=== PATIENT | male | born 1955 | race African-American/Black ===

== ENCOUNTER → 2017-10-06 13:58 | Outpatient (CLI) | payer OTHER | END | disposition short-term general hospital (02) | LOC: AMB 13:58 | DX: R11.2 Nausea with vomiting, unspecified (principal); F10.129 Alcohol abuse with intoxication, unspecified | CPT/HCPCS: A0425; A0429 ==

== ENCOUNTER 2017-10-06 14:04 | Emergency (ER) | payer OTHER ==
[~2017-10-06] VITALS: Ht 157.5 cm; Wt 68.0 kg
[2017-10-06 14:00] VITALS: TEMP 98.1
[2017-10-06 15:29] LABS: PLATELET COUNT 92 K/uL (142-355)
[2017-10-06 15:33] LABS: POTASSIUM 3.9 mmol/L (3.6-5.2)
[2017-10-06 18:06] VITALS: BP 140/88
== END 2017-10-06 18:08 | disposition home or self-care (01) ==
LOC: ED 14:04
PROVIDERS: Family Medicine
DX: F10.129 Alcohol abuse with intoxication, unspecified (principal)
CPT/HCPCS: 36415; 80048; 80307; 80320; 85027; 96360; 96361; 99283; J3411; J7120

== ENCOUNTER 2017-10-07 08:16 | Emergency (ER) | payer OTHER ==
[~2017-10-07] VITALS: Ht 165.1 cm; Wt 59.0 kg
== END 2017-10-07 15:00 | disposition home or self-care (01) ==
LOC: ED 08:16
DX: F10.129 Alcohol abuse with intoxication, unspecified (principal)
CPT/HCPCS: 96361; 96374; 96375; 99284; J2550